=== PATIENT | male | born 1955 | race Caucasian/White ===

== ENCOUNTER 2020-02-08 06:33 | Emergency (ER) | payer MEDICARE, OTHER ==
[2020-02-08 07:13] LABS: ALT (SGPT) 52 U/L (8-55); AST (SGOT) 20 U/L (5-34); Albumin 2.7 g/dL (3.4-4.8); Alkaline Phosphatase 234 U/L (40-110); Anion Gap 19 mmol/L (10-20); BUN (Urea Nitrogen) 30 mg/dL (8.4-25.7); Calc. Creatinine Clearance 0 mL/min (70-130); Carbon Dioxide 23 mmol/L (23-31); Chloride 97 mmol/L (98-107); Estimated GFR-MDRD Greater than 90; Globulin 3.3 g/dL (2.4-3.5); Glucose 125 mg/dL (80-115); Hemoglobin 7.5 g/dL (14.0-18.0); Mean Corpuscular HGB CONC 29.6 g/dL (32.0-36.0); Mean Corpuscular Hemoglobin 22.9 pg (27.0-31.0); Mean Corpuscular Volume 77.3 fL (78.0-98.0); Mean Platelet Volume 6.8 fL (7.4-10.4); Platelet Count 274 thou/uL (130-400); Potassium 4.4 mmol/L (3.5-5.1); RBC Distribution Width 17.2 % (11.5-14.5); Red Blood Cell (RBC) Count 3.28 mill/uL (4.70-6.10); Sodium 135 mmol/L (136-145); White Blood Cell (WBC) Count 24.4 thou/uL (4.8-10.8)
[2020-02-08 07:14] LABS: Anisocytosis SLIGHT = 6-15 cells (100X) (0-5/hpf); Band 10 % (5-11); Eosinophils 4 % (0-10); Hypochromia SLIGHT = 6-15 cells (100X) (0-5/hpf); Lymphocytes 4 % (21-51); MDiff Complete? YES; Microcytosis SLIGHT = 6-15 cells (100X) (0-5/hpf); Monocytes 2 % (0-10); Neutrophil 80 % (42-75); Platelet Morphology Comment Appears Adequate
--- NOTE | 2020-02-08 07:41 | RAD ---
Exam: Chest one view HISTORY:Dyspnea. Lung cancer. Shortness of breath. Comparison: None FINDINGS: Cardiac silhouette:Cardiomegaly. Aorta: Unremarkable Pulmonary vessels: Normal Costophrenic angles: Right-sided pleural effusion. Lines and tubes: Right-sided chest tube with the distal tip oriented towards the cardiac apex. LUNGS: Right lower lobe and middle lobe consolidation which obscure the right heart border and right hemidiaphragm. Postsurgical changes with multiple surgical clips project over the right hemithorax. Well-circumscribed oval opacities reduction of the right lung apex, measuring 8 cm. Pneumothorax: None Osseous abnormalities: None IMPRESSION: 1. Opacification right hemithorax which may be due to pleural and parenchymal changes. Postsurgical c hanges are suspected. 2. Well-circumscribed opacity in the right lung apex is incompletely evaluated. Evaluation with CT ma y be beneficial.
[2020-02-08] MEDS ORDERED: Sodium Chloride 0.9% 1,000 ML ONE ×3 (07:45→09:48)
[2020-02-08] MEDS ORDERED: Aspirin Chewable 81 MG TAB ONE (07:45)
[2020-02-08] MEDS ORDERED: Ondansetron PF 4 MG/2 ML Vial ONE (07:45)
[2020-02-08] MEDS ORDERED: Sodium Chloride 0.9% 100 ML ONE (08:27)
[2020-02-08] MEDS ORDERED: Piperacillin/Tazobactam 3.375 GM VIAL ONE (08:27)
[2020-02-08] MEDS ORDERED: Sodium Chloride 0.9% 250 ML 250 ML ONE (08:54)
--- NOTE | 2020-02-08 08:56 | CT ---
Exam: CT angiogram of the chest HISTORY: Chest pain. Lung cancer. Dyspnea. COMPARISON: None TECHNIQUE: CT angiogram of the chest is performed in the axial plane. Three-dimensional reformatted i mages are submitted for interpretation FINDINGS: Mediastinum: There are necrotic enlarged mediastinal lymph nodes. Repeater Operator lymph node measures 1.0 x 1.0 cm. HEART: Normal heart size. Moderate or cardiac fluid Aorta: No aneurysm or dissection Upper solid abdominal viscera: Complex cyst in the liver measuring 2.7 x 2.4 and 1.4 x 1.4 cm. Trachea and central bronchi: Patent Pleural spaces: Multifocal loculated complex right-sided pleural fluid. Loculated fluid result in com pression (passive atelectasis) of the right lower lobe. Loculated fluid in the right lung apex. Right-sided chest tube terminates in the right lung apex. Lung parenchyma: Right lung: Perihilar interstitial and alveolar opacities. Basilar atelectasis in the lower lobe. Left lung: Solid nodules with peripheral groundglass opacity in the left upper lobe measures 1.0 x 1. 5 cm. There is a second nodule in the left upper lobe measures 1.2 x 1.1 cm. Pleural-based mass is noted along the lateral aspect of the left upper lobe, measuring 0.6 cm. Pneumothorax: None Osseous structures: No lytic or blastic lesions Pulmonary arteries: Adequate contrast opacification pulmonary arterial system to the level of segment al arteries. No filling defect to suggest pulmonary embolism Incidentals: Enlarged right axillary periclavicular lymph nodes. Repeater Operator lymph node measures 4 .7 x 4.0 cm. IMPRESSION: 1. No acute pulmonary artery embolism to the level of the segment arteries 2. Left lung masses, worrisome for malignancy until otherwise 3. Multifocal loculated complex right-sided pleural fluid, worrisome for possible pleural-based metas tases. 4. Enlarged necrotic right axillary lymph nodes. Enlarged right axillary lymph node measures 4.7 x 4. 0 cm. Additional small lymph nodes are identified.
[2020-02-08] MEDS ORDERED: Iopamidol 370 76% 100 ML VIAL ONE (09:00)
== END 2020-02-08 10:07 | disposition short-term general hospital (02) ==
LOC: NAV ERS 06:33
DX: R06.00 Dyspnea, unspecified (principal); R07.9 Chest pain, unspecified; R74.0 Nonspecific elevation of levels of transaminase and lactic acid dehydrogenase [LDH]; D72.829 Elevated white blood cell count, unspecified; C34.90 Malignant neoplasm of unspecified part of unspecified bronchus or lung; I10 Essential (primary) hypertension; Z79.899 Other long term (current) drug therapy
CPT/HCPCS: 71045; 71275; 80053; 83605; 83880; 84484; 85025; 85379; 87040; 93005; 96361; 96365; 96367; 96375; J2405; J2543; J3370; J3490; J7050; Q9967